=== PATIENT | male | born 1950 | race African-American/Black ===

== ENCOUNTER 2022-10-22 16:17 | Inpatient (IN) | payer OTHER ==
[~2022-10-22] VITALS: Ht 180.3 cm; Wt 82.1 kg
[2022-10-22 17:02] LABS: HEMATOCRIT 37.5 % (36.7-47.1); MEAN CORPUSCULAR HEMOGLOBIN 27.9 uug (23.8-33.4); MEAN CORPUSCULAR VOLUME 84.6 fL (73.0-96.2); PLATELET COUNT (AUTO) 322 K/uL (152-348)
[2022-10-22 17:48] LABS: CARBON DIOXIDE 26 mmol/L (21-32); CHLORIDE 99 mmol/L (98-107); CREATININE 0.8 mg/dL (0.6-1.3); GLUCOSE 124 mg/dL (74-106); POTASSIUM 3.4 mmol/L (3.5-5.1); UREA NITROGEN, BLOOD 10 mg/dL (7-18)
[2022-10-22] MEDS ORDERED: CHOL10005 PO (18:34)
[2022-10-22] MEDS ORDERED: METF-442 PO (18:34)
[2022-10-22] MEDS ORDERED: ASPI81TA31 PO (18:34)
[2022-10-22] MEDS ORDERED: GLIP5TAB13 PO ×2 (18:34)
[2022-10-22] MEDS ORDERED: METO50TA16 PO (18:34)
[2022-10-22] MEDS ORDERED: FERR325T28 PO (18:34)
[2022-10-22] MEDS ORDERED: EMPA25TA PO (18:34)
[2022-10-22] MEDS ORDERED: AMLO-212 PO (18:34)
[2022-10-22] MEDS ORDERED: OMEP20CA15 PO (18:34)
[2022-10-22] MEDS ORDERED: LISI40TA13 PO (18:34)
[2022-10-22] MEDS ORDERED: ATOR40TA PO (18:34)
[2022-10-22] MEDS ORDERED: ASCO500C18 PO (18:34)
[2022-10-22] MEDS ORDERED: ACETAMINOPHEN 325 MG TABLET PO PRN (19:45)
[2022-10-22] MEDS ORDERED: MAGNESIUM HYDROXIDE 30 ML LIQUID UDC PO PRN (19:45)
[2022-10-22] MEDS ORDERED: MORPHINE SULFATE 2 MG/1 ML DISP.SYRIN IV PRN (19:45)
[2022-10-22] MEDS ORDERED: ONDANSETRON 4 MG/2 ML VIAL IV PRN (19:45)
[2022-10-22] MEDS: METOPROLOL TARTRATE 50 MG TABLET PO SCH (20:15)
[2022-10-22] MEDS ORDERED: DOCUSATE SODIUM 250 MG CAPSULE PO SCH (21:00)
[2022-10-22] MEDS ORDERED: DOCUSATE SODIUM 100 MG CAPSULE PO ONE (22:33)
[2022-10-22] MEDS ORDERED: ATORVASTATIN 20 MG TABLET ONE (22:33)
[2022-10-22] MEDS: ATORVASTATIN 40 MG TABLET PO SCH (22:37)
[2022-10-23] MEDS ORDERED: MORPHINE SULFATE 2 MG/1 ML DISP.SYRIN ONE (01:00)
[2022-10-23] MEDS ORDERED: ONDANSETRON 4 MG/2 ML VIAL ONE (01:00)
[2022-10-23] MEDS ORDERED: PANTOPRAZOLE SODIUM 40 MG TABLET.DR PO ONE (06:58)
[2022-10-23] MEDS: PANTOPRAZOLE SODIUM 40 MG TABLET.DR PO SCH (07:03)
[2022-10-23 07:07] LABS: MEAN CORPUSCULAR HEMOGLOBIN 28.3 uug (23.8-33.4); MEAN CORPUSCULAR VOLUME 84.1 fL (73.0-96.2); PLATELET COUNT (AUTO) 339 K/uL (152-348)
[2022-10-23] MEDS: glipiZIDE 5 MG TABLET PO SCH ×2 (07:30→19:22)
[2022-10-23] MEDS ORDERED: METOPROLOL TARTRATE 50 MG TABLET ONE (07:42)
[2022-10-23] MEDS: METOPROLOL TARTRATE 50 MG TABLET PO SCH ×2 (07:48→20:13)
[2022-10-23 07:54] LABS: BILIRUBIN,TOTAL 0.5 mg/dL (0.2-1.0); CREATININE 0.9 mg/dL (0.6-1.3); MAGNESIUM 2.1 mg/dL (1.8-2.4); PHOSPHOROUS 4.2 mg/dL (2.5-4.9); POTASSIUM 3.7 mmol/L (3.5-5.1); TOTAL PROTEIN, SERUM 7.3 g/dL (6.4-8.2)
[2022-10-23 07:57] LABS: THYROID STIMULATING HORMONE 0.232 mIU/mL (0.358-3.740)
[2022-10-23] MEDS ORDERED: Empagliflozin (Jardiance) 25 MG) PO SCH (09:00)
[2022-10-23] MEDS ORDERED: Medication Not On Formulary EA (Cholecalciferol (Vitamin D3) (Vitamin D3) 1 CAP) PO SCH (09:00)
[2022-10-23] MEDS ORDERED: FUROSEMIDE 40 MG/4 ML VIAL ONE (09:12)
[2022-10-23] MEDS ORDERED: ASPIRIN EC 81 MG TABLET.DR PO ONE (09:13)
[2022-10-23] MEDS ORDERED: AMLODIPINE 5 MG TABLET ONE (09:15)
[2022-10-23] MEDS: FUROSEMIDE 40 MG/4 ML VIAL IV SCH (09:22)
[2022-10-23] MEDS: ASPIRIN 81 MG TAB.CHEW PO SCH (09:22)
[2022-10-23] MEDS: AMLODIPINE 5 MG TABLET PO SCH (09:23)
[2022-10-23] MEDS ORDERED: METFORMIN HCL 500 MG TABLET ONE ×2 (10:12→18:15)
[2022-10-23] MEDS: EMPAGLIFLOZIN 25 MG TABLET PO SCH (10:17)
[2022-10-23] MEDS: METFORMIN HCL 500 MG TABLET PO SCH ×2 (10:17→18:18)
[2022-10-23] MEDS: LISINOPRIL 20 MG TABLET PO SCH (10:17)
[2022-10-23] MEDS: FERROUS SULFATE 325 MG TABEC PO SCH (10:36)
[2022-10-23 19:23] VITALS: BP 132/84
[2022-10-23] MEDS: ATORVASTATIN 40 MG TABLET PO SCH (20:13)
[2022-10-23] MEDS: DOCUSATE SODIUM 100 MG CAPSULE PO SCH (20:13)
[2022-10-24 01:35] VITALS: BP 120/74
[2022-10-24 03:57] VITALS: BP 121/58
[2022-10-24] MEDS: PANTOPRAZOLE SODIUM 40 MG TABLET.DR PO SCH (06:00)
[2022-10-24] MEDS: METFORMIN HCL 500 MG TABLET PO SCH ×2 (08:20→17:40)
[2022-10-24] MEDS: glipiZIDE 5 MG TABLET PO SCH ×2 (08:20→17:40)
[2022-10-24] MEDS: FUROSEMIDE 40 MG/4 ML VIAL IV SCH (08:20)
[2022-10-24] MEDS: METOPROLOL TARTRATE 50 MG TABLET PO SCH ×2 (08:21→20:09)
[2022-10-24] MEDS: LISINOPRIL 20 MG TABLET PO SCH (08:22)
[2022-10-24] MEDS: ASPIRIN 81 MG TAB.CHEW PO SCH (08:22)
[2022-10-24] MEDS: FERROUS SULFATE 325 MG TABEC PO SCH (08:22)
[2022-10-24] MEDS: CHOLECALCIFEROL 1,000 UNIT TABLET PO SCH (08:23)
[2022-10-24] MEDS: ASCORBIC ACID 500 MG TABLET PO SCH (08:23)
[2022-10-24] MEDS: AMLODIPINE 5 MG TABLET PO SCH (08:23)
[2022-10-24] MEDS: EMPAGLIFLOZIN 25 MG TABLET PO SCH (08:24)
[2022-10-24 10:37] LABS: *BILIRUBIN,URIN NEGATIVE (NEGATIVE); *BLOOD, URINE NEGATIVE (NEGATIVE); *CLARITY,URINE CLEAR (CLEAR); *COLOR,URINE YELLOW (YELLOW); *KETONES,URINE 2+ (NEGATIVE); *UROBILINOGEN,URINE 0.2 E.U./dl (NORMAL); LEUKOCYTE ESTERASE ,URINE NEGATIVE (NEGATIVE); NITRITE, URINE NEGATIVE (NEGATIVE); PH,URINE 5.5 (5.0-8.0)
[2022-10-24 10:48] LABS: UGLUCOSE 3+ (NEGATIVE)
[2022-10-24 11:33] VITALS: BP 107/68
[2022-10-24 15:15] VITALS: BP 127/77
[2022-10-24 20:00] VITALS: BP 128/65
[2022-10-24] MEDS: ATORVASTATIN 40 MG TABLET PO SCH (20:09)
[2022-10-24] MEDS: DOCUSATE SODIUM 100 MG CAPSULE PO SCH (20:09)
[2022-10-24 22:46] VITALS: BP 115/56
[2022-10-25 04:00] VITALS: BP 124/74
[2022-10-25] MEDS: PANTOPRAZOLE SODIUM 40 MG TABLET.DR PO SCH (06:01)
[2022-10-25 06:14] LABS: HEMATOCRIT 37.1 % (36.7-47.1); MEAN CORPUSCULAR HEMOGLOBIN 27.8 uug (23.8-33.4); PLATELET COUNT (AUTO) 434 K/uL (152-348)
[2022-10-25 06:28] LABS: PHOSPHOROUS 3.3 mg/dL (2.5-4.9); POTASSIUM 3.4 mmol/L (3.5-5.1)
[2022-10-25 08:00] VITALS: BP 120/62
[2022-10-25] MEDS: CHOLECALCIFEROL 1,000 UNIT TABLET PO SCH (08:04)
[2022-10-25] MEDS: FERROUS SULFATE 325 MG TABEC PO SCH (08:04)
[2022-10-25] MEDS: ASPIRIN 81 MG TAB.CHEW PO SCH (08:04)
[2022-10-25] MEDS: METFORMIN HCL 500 MG TABLET PO SCH (08:05)
[2022-10-25] MEDS: ASCORBIC ACID 500 MG TABLET PO SCH (08:05)
[2022-10-25] MEDS: LISINOPRIL 20 MG TABLET PO SCH (08:05)
[2022-10-25] MEDS: METOPROLOL TARTRATE 50 MG TABLET PO SCH (08:06)
[2022-10-25] MEDS: glipiZIDE 5 MG TABLET PO SCH (08:09)
[2022-10-25] MEDS: AMLODIPINE 5 MG TABLET PO SCH (08:10)
[2022-10-25] MEDS: EMPAGLIFLOZIN 25 MG TABLET PO SCH (08:13)
[2022-10-25] MEDS ORDERED: POTASSIUM CHLORIDE 20 MEQ POWDER PACKET GT ONE (08:15)
[2022-10-25] MEDS ORDERED: POTASSIUM CHLORIDE 20 MEQ TAB.PRT.SR PO ONE (08:15)
[2022-10-25] MEDS ORDERED: LIDOCAINE 5% PATCH TD SCH (11:55)
[2022-10-25 11:56] VITALS: BP 114/71
== END 2022-10-25 15:20 | disposition home or self-care (01) | DRG 206 ==
LOC: ER 16:19 → TRANSITION 10-23 09:00 → TELE3 10-23 17:37
PROVIDERS: ADMIT Internal Medicine; ATTEND Student in an Organized Health Care Education/Training Program
DX: M94.0 Chondrocostal junction syndrome [Tietze] (principal); R00.0 Tachycardia, unspecified; E55.9 Vitamin D deficiency, unspecified; E78.5 Hyperlipidemia, unspecified; I10 Essential (primary) hypertension; K21.9 Gastro-esophageal reflux disease without esophagitis; F32.A Depression, unspecified; Z86.010 Personal history of colon polyps; Z79.82 Long term (current) use of aspirin; Z87.442 Personal history of urinary calculi; Z79.899 Other long term (current) drug therapy; Z20.822 Contact with and (suspected) exposure to COVID-19; E11.9 Type 2 diabetes mellitus without complications; I50.9 Heart failure, unspecified; D50.9 Iron deficiency anemia, unspecified; Z79.84 Long term (current) use of oral hypoglycemic drugs; M54.89 Other dorsalgia
CPT/HCPCS: 36415; 71045; 83550; 83735; 84100; 84443; 84484; 85025; 87040; 93005; 93307; A4663; G0378; J1940; J2270; J2405